=== PATIENT | female | born 1975 | race Hispanic/Latino ===

== ENCOUNTER 2023-09-04 07:18 | Day surgery (SDC) | payer BC ==
[2023-09-04] VITALS (12 sets, daily range): BP systolic 104–172; BP diastolic 59–81; PULSE 77–91; RESP 12–16
[~2023-09-04] VITALS: Ht 153.7 cm; Wt 81.6 kg
[~2023-09-04 07:18] MED LIST: METF-444 PO; MULT-1367 PO
[2023-09-04] MEDS: 0.9%NACL 1000ML 1,000 ML IV ONE (08:09)
[2023-09-04] MEDS ORDERED: BOTULINUM TOXIN TYPE A 100 UNITS/VIAL INJ ONE (09:00)
[2023-09-04] MEDS ORDERED: LIDOCAINE PF 100MG/5ML (2%) SYRINGE 5ML ONE (09:20)
[2023-09-04] MEDS ORDERED: PROPOFOL 10 MG/ML 20ML VIAL IV ONE (09:20)
[2023-09-04] MEDS ORDERED: FENTANYL CITRATE PF 50 MCG/1 ML 2ML VIAL ONE (09:31)
== END 2023-09-04 10:45 | disposition home or self-care (01) ==
LOC: ENDO 07:18 → DAH 07:18 → ENDO 10:45
PROVIDERS: ATTEND Surgery
DX: K60.1 Chronic anal fissure (principal); K62.89 Other specified diseases of anus and rectum; E11.9 Type 2 diabetes mellitus without complications; E78.00 Pure hypercholesterolemia, unspecified; Z79.84 Long term (current) use of oral hypoglycemic drugs; Z79.899 Other long term (current) drug therapy; Z98.891 History of uterine scar from previous surgery; Z98.890 Other specified postprocedural states
CPT/HCPCS: 81025; 45335; 82948; J0585; J3010; J7030; J2001; J2704; A4620; A4215; A4657; J3490